=== PATIENT | female | born 1945 | race Caucasian/White ===

== ENCOUNTER 2018-06-26 12:58 | Inpatient (IN) ==
[2018-06-26] MEDS ORDERED: Ondansetron 4 MG/2 ML VIAL IVP ONE (13:09)
[2018-06-26] MEDS ORDERED: *HR* FentaNYL (PF) 100 MCG/2 ML VIAL IVP ONE (13:11)
--- NOTE | 2018-06-26 13:14 | Emergency Department Note ---
Disposition Clinical Impression: Renal mass, Hematoma Disposition: Admitted As Inpatient Condition: Good Time of Disposition: 15:40 Abdominal Pain HPI - General Chief Complaint: ED Abdominal Pain Stated Complaint: right side pain Time Seen by Provider: 06/26/18 13:09 Source: patient, EMS Mode of arrival: EMS Limitations: no limitations Nursing Notes Reviewed: Yes Vital Signs Reviewed: Yes - History of Present Illness HPI Narrative: The patient presents emergency department complaining of right flank pain. Does have a history of renal mass as well as left-sided breast cancer. Currently in remission. States that the mass is been ultrasounded several times to ensure no growth. Most recent size was 6 cm. Does report she also has history of stage III chronic kidney disease. Is not on dialysis. Patient reports today she was sitting watching television whenever she started having a right-sided pain. She had some nausea but no true vomiting. Denies any diarrhea did have prominent yesterday. She denies any blood or dark stools. She denies any shortness breath or chest pain. States that she was rehabilitated by the pain so much she had to crawl to the house. She reports the pain is still present however eased up somewhat. She has not tried anything to make it better. Patient does have history of cholecystectomy and hysterectomy. - Related Data Home Medications Medication Instructions Recorded Confirmed Atenolol [Tenormin] 50 mg PO DAILY 09/30/15 09/30/15 Cholecalciferol (D-3) [Vitamin D] 5,000 unit PO DAILY 09/30/15 09/30/15 Furosemide [Lasix] 40 mg PO DAILY 09/30/15 09/30/15 Spironolactone [Aldactone] 50 mg PO DAILY 09/30/15 09/30/15 Allergies Allergy/AdvReac Type Severity Reaction Status Date / Time Penicillins Allergy Numbness Verified 09/30/15 10:54 All systems ED: reviewed and negative except as stated. Review of Systems: As Per HPI Constitutional: Denies: fever, chills ENT ED: Denies: congestion Cardiovascular: Denies: chest pain, palpitations, syncope Respiratory: Denies: cough, dyspnea Gastrointestinal: Reports: abdominal pain, nausea. Denies: vomiting, diarrhea, constipation, hematemesis, melena, hematochezia Genitourinary: Denies: urgency, dysuria, frequency, hematuria Integumentary: Denies: rash Neurological: Denies: headache, weakness Abdominal Pain PMH - Past Medical History Medical history: Reports: arthritis, cancer, hypertension, renal disease Female Surgical History: Reports: no surgical history Psychiatric history: Reports: no psych history - Social History Smoking status: Never smoker Alcohol use: Reports: none Drug use: Reports: none Physical Exam - General Limitations: no limitations General appearance: alert, in no apparent distress - Head Head exam: atraumatic, normocephalic, normal inspection - Eye Eye exam: Present: normal appearance, PERRL, EOMI - ENT ENT exam: normal exam, normal oropharynx, mucous membranes moist - Neck Neck exam: Present: normal inspection, full ROM, trachea midline - Chest Chest inspection: Present: normal inspection, symmetric chest wall rise. Absent: tenderness - Respiratory Respiratory exam: Present: normal lung sounds bilaterally. Absent: respiratory distress, accessory muscle use - Cardiovascular Cardiovascular exam: Present: regular rate, normal rhythm, normal heart sounds - Abdominal Exam Abdominal exam: Present: soft, tenderness (The right upper and right lower quadrant) - Extremities Exam Extremities exam: Present: normal inspection, full ROM, normal capillary refill. Absent: tenderness, pedal edema, calf tenderness - Back Exam Back exam: Present: normal inspection, full ROM, CVA tenderness (R) - Neurological Exam Neurological exam: Present: alert, oriented X3 - Psychiatric Psychiatric exam: Present: normal affect, normal mood - Skin Skin exam: Present: warm, dry, intact, normal color. Absent: rash, cyanosis, diaphoresis Course Course Narrative: Female patient with a history of left-sided breast cancer as well as a known right renal mass presenting with sudden onset right flank pain. Abdomen is soft and non-peritoneal. She did have an episode of nausea but no true vomiting. No diarrhea. Did have a bowel movement yesterday. Patient complains of pain. No urinary symptoms. We will provide her with pain medication as well as nausea medication get a CT of her abdomen. Does have a history of CAD so we will not use IV contrast at this time. We will also get basic lab workup on patient. - Reevaluation(s) Reevaluation #1: Concerns for new hematoma formation near the right renal mass. We will contact urology to discuss the patient. Time: 13:40 Reevaluation #2: We will admit patient to the hospital at this time for serial H&H's. Patient appears clinically stable. Patient is been managed with fentanyl. We will admit to the hospital. Time: 15:39 - Consultations Consultation #1: I spoke wih Dr Simmons. He was familiar with the Pt. his recommendation was for admission and serial hemoglobins. Is requesting patient be admitted to the hospitalist. The concern would be if her hemoglobin did drop that she would need to be evaluated by IR and have a possible embolization. Time: 13:46 Consultation #2: Dr. Rosales accepted patient in stable condition. Time: 15:39 Vital Signs Temperature 97.9 F 06/26/18 13:08 Pulse Rate 66 06/26/18 13:08 Respiratory Rate 18 06/26/18 13:08 Blood Pressure 152/88 06/26/18 13:08 O2 Sat by Pulse Oximetry 98 06/26/18 13:08 Temperature 97.9 F 06/26/18 13:08 Pulse Rate 67 06/26/18 13:08 Respiratory Rate 18 06/26/18 13:08 Blood Pressure 152/88 06/26/18 13:08 O2 Sat by Pulse Oximetry 98 06/26/18 13:08 Oxygen Delivery Oxygen Delivery Room Air Abdominal Pain - Medical Records Medical records reviewed: Yes I reviewed the patient's medical records. - Lab Data Lab results reviewed: Yes I reviewed the patient's lab results. Result diagrams: 06/26/18 13:52 06/26/18 13:52 Lab Results 06/26/18 06/26/18 06/26/18 Range/Units 13:52 13:52 13:52 WBC 13.8 H (4.3-11.1) K/mcL RBC 4.50 (3.82-4.97) M/mcL Hgb 13.8 (11.5-15.4) g/dL Hct 42.6 (35.3-44.9) % MCV 94.7 (83.0-100.0) fL MCH 30.7 (28.0-33.3) pg MCHC 32.4 (31.6-35.5) g/dL RDW 13.5 (11.5-14.5) % Plt Count 232 (140-400) K/mcL MPV 10.2 (9.4-12.4) fL Immature Gran % 1.0 (0-4) % Seg Neutrophils % 82.7 % Lymphocytes % 11.0 % Monocytes % 4.4 % Eosinophils % 0.5 % Basophils % 0.4 % Neutrophils # 11.4 H (1.6-8.9) K/mcL Lymphocytes # 1.5 (0.6-4.6) K/mcL Monocytes # 0.6 (0.0-1.3) K/mcL Eosinophils # 0.1 (0.0-0.6) K/mcL Basophils # 0.1 (0.0-0.2) K/mcL Sodium 139 (136-145) mEq/L Potassium 4.6 (3.5-5.1) mEq/L Chloride 104 (98-107) mEq/L Carbon Dioxide 25 (23-29) mEq/L BUN 37 H (8-23) mg/dL Creatinine 1.52 H (0.60-1.20) mg/dL Est GFR ( Amer) 41 L (> 60) Est GFR (Non-Af Amer) 33 L (> 60) BUN/Creatinine Ratio 24 (6-26) Glucose 165 H (70-105) mg/dL Calculated Osmolality 300 (280-300) Lactic Acid 1.6 (0.5-2.2) mmol/L Calcium 9.5 (8.6-10.3) mg/dL Total Bilirubin 0.7 (0.3-1.0) mg/dL Direct Bilirubin 0.1 (0.0-0.2) mg/dL Indirect Bilirubin 0.6 (0.0-1.2) mg/dL AST 15 (13-39) Units/L ALT 17 (7-52) Units/L Alkaline Phosphatase 75 (34-104) Units/L Troponin I < 0.03 (< 0.04) ng/mL Serum Total Protein 7.2 (6.4-8.9) g/dL Albumin 4.3 (3.5-5.7) g/dL Globulin 2.9 (2.4-3.5) g/dL Albumin/Globulin Ratio 1.5 (1.1-2.2) Lipase 64 (11-82) Units/L Urine Color (Yellow) Urine Clarity (Clear) Urine pH (5.0-8.0) pH Units Ur Specific [place] (1.010-1.025) Urine Protein (Neg-Trace) mg/dL Urine Glucose (UA) (Normal) mg/dL Urine Ketones (Negative) mg/dL Urine Blood (Negative) Urine Nitrite (Negative) Urine Bilirubin (Negative) Urine Urobilinogen (Normal) mg/dL Ur Leukocyte Esterase (Negative) Urine Microscopic RBC (0-3) per hpf Urine Microscopic WBC (0-3) per hpf Ur Squamous Epith Cells (None-Few) per lpf Urine Bacteria (None-Few) per hpf Hyaline Casts (None-Few) per lpf Ur Culture Indicated? (NO) 06/26/18 Range/Units 14:16 WBC (4.3-11.1) K/mcL RBC (3.82-4.97) M/mcL Hgb (11.5-15.4) g/dL Hct (35.3-44.9) % MCV (83.0-100.0) fL MCH (28.0-33.3) pg MCHC (31.6-35.5) g/dL RDW (11.5-14.5) % Plt Count (140-400) K/mcL MPV (9.4-12.4) fL Immature Gran % (0-4) % Seg Neutrophils % % Lymphocytes % % Monocytes % % Eosinophils % % Basophils % % Neutrophils # (1.6-8.9) K/mcL Lymphocytes # (0.6-4.6) K/mcL Monocytes # (0.0-1.3) K/mcL Eosinophils # (0.0-0.6) K/mcL Basophils # (0.0-0.2) K/mcL Sodium (136-145) mEq/L Potassium (3.5-5.1) mEq/L Chloride (98-107) mEq/L Carbon Dioxide (23-29) mEq/L BUN (8-23) mg/dL Creatinine (0.60-1.20) mg/dL Est GFR ( Amer) (> 60) Est GFR (Non-Af Amer) (> 60) BUN/Creatinine Ratio (6-26) Glucose (70-105) mg/dL Calculated Osmolality (280-300) Lactic Acid (0.5-2.2) mmol/L Calcium (8.6-10.3) mg/dL Total Bilirubin (0.3-1.0) mg/dL Direct Bilirubin (0.0-0.2) mg/dL Indirect Bilirubin (0.0-1.2) mg/dL AST (13-39) Units/L ALT (7-52) Units/L Alkaline Phosphatase (34-104) Units/L Troponin I (< 0.04) ng/mL Serum Total Protein (6.4-8.9) g/dL Albumin (3.5-5.7) g/dL Globulin (2.4-3.5) g/dL Albumin/Globulin Ratio (1.1-2.2) Lipase (11-82) Units/L Urine Color Yellow (Yellow) Urine Clarity Clear (Clear) Urine pH 6.0 (5.0-8.0) pH Units Ur Specific [place] 1.013 (1.010-1.025) Urine Protein Negative (Neg-Trace) mg/dL Urine Glucose (UA) Normal (Normal) mg/dL Urine Ketones Negative (Negative) mg/dL Urine Blood Small H (Negative) Urine Nitrite Negative (Negative) Urine Bilirubin Negative (Negative) Urine Urobilinogen Normal (Normal) mg/dL Ur Leukocyte Esterase Negative (Negative) Urine Microscopic RBC 0-3 (0-3) per hpf Urine Microscopic WBC 0-3 (0-3) per hpf Ur Squamous Epith Cells Many H (None-Few) per lpf Urine Bacteria None Seen (None-Few) per hpf Hyaline Casts None Seen (None-Few) per lpf Ur Culture Indicated? NO (NO) - Radiology Data Radiology results reviewed: Yes I reviewed the patient's radiology results. Abdomen/Pelvis CT 06/26/18 13:10 IMPRESSION: 1. Interval hemorrhage of right renal angiomyolipoma and interval increase size of right renal angiomyolipoma. Relatively small sized right retroperitoneal hematoma. 2. Diverticulosis coli without CT evidence of acute diverticulitis. 3. Calcific atherosclerotic disease aorta. D/ / Mono Rodriguez / Mono Rodriguez Interpreting Provider: Mono Rodriguez - EKG Data EKG attestation: Yes I reviewed and interpreted this EKG. EKG results narrative: Normal sinus rhythm at a rate of 66. LA interval is not measured. QRS duration is 90. QT is 394. QTC is 413. No signs of acute ischemia. Delayed R-wave progression. No signs of WPW or [place]. No significant change from previous EKG dated 12/18/2012. Attestation Statement - Attestation Attestation: I, Duarte Wayne, examined this patient and my medical decision-making was reviewed with the [employer]/PA/Advanced Practice Nurse/Resident Physician. I agree with the documented findings, disposition and treatment plan as described except to the extent set forth below. 72-year-old female presents emergency Department with concerns of right flank pain. Patient states symptoms are worsening over the past 24-48 hours. Patient has a history of a renal lipoma which she has attempted to have embolized in the past however those previous attempts were unsuccessful. Pt has continued pain in the ED. Denies worsening of pain with food. CT shows likely hematoma of the right renal capsule with surrounding stranding. We spoke with the urologist who recommended patient be admitted to the hospital for embolization with interventional radiology. Patient is comfortable with this plan of action.
[2018-06-26 14:15] LABS: Basophils # 0.1 K/mcL (0.0-0.2); Basophils % 0.4 %; Eosinophils # 0.1 K/mcL (0.0-0.6); Eosinophils % 0.5 %; Hematocrit 42.6 % (35.3-44.9); Hemoglobin 13.8 g/dL (11.5-15.4); Lymphocytes # 1.5 K/mcL (0.6-4.6); Mean Corpuscular HGB Conc 32.4 g/dL (31.6-35.5); Mean Corpuscular Hemoglobin 30.7 pg (28.0-33.3); Mean Corpuscular Volume 94.7 fL (83.0-100.0); Mean Platelet Volume 10.2 fL (9.4-12.4); Monocytes # 0.6 K/mcL (0.0-1.3); Monocytes % 4.4 %; Neutrophils # 11.4 K/mcL (1.6-8.9); Platelet Count 232 K/mcL (140-400); Red Cell Distribution Width 13.5 % (11.5-14.5); Segmented Neutrophils % 82.7 %
[2018-06-26 14:30] LABS: Alanine Aminotransferase 17 Units/L (7-52); Albumin 4.3 g/dL (3.5-5.7); Albumin/Globulin Ratio 1.5 (1.1-2.2); Alkaline Phosphatase 75 Units/L (34-104); Aspartate Amino Transferase 15 Units/L (13-39); BUN/Creatinine Ratio 24 (6-26); Bilirubin,Direct 0.1 mg/dL (0.0-0.2); Bilirubin,Indirect 0.6 mg/dL (0.0-1.2); Bilirubin,Total 0.7 mg/dL (0.3-1.0); Blood Urea Nitrogen 37 mg/dL (8-23); Calcium 9.5 mg/dL (8.6-10.3); Carbon Dioxide 25 mEq/L (23-29); Chloride 104 mEq/L (98-107); Globulin 2.9 g/dL (2.4-3.5); Glucose 165 mg/dL (70-105); Lipase 64 Units/L (11-82); Osmolality,Calculated 300 (280-300); Potassium 4.6 mEq/L (3.5-5.1); Sodium 139 mEq/L (136-145); Total Protein 7.2 g/dL (6.4-8.9); Troponin I < 0.03 ng/mL (< 0.04); eGFR For Non-African Americans 33 (> 60)
[2018-06-26 14:52] LABS: Bilirubin,Urine Negative (Negative); Blood,Urine Small (Negative); Clarity,Urine Clear (Clear); Color,Urine Yellow (Yellow); Glucose,Urine (UA) Normal (Normal); Ketones,Urine Negative (Negative); Leukocyte Esterase,Urine Negative (Negative); Nitrite,Urine Negative (Negative); Protein,Urine Negative (Neg-Trace); Specific Gravity,Urine 1.013 (1.010-1.025); Urobilinogen,Urine Normal (Normal)
[2018-06-26 14:58] LABS: Bacteria,Urine None Seen per hpf (None-Few); Hyaline Casts,Urine None Seen per lpf (None-Few); RBC,Urine 0-3 per hpf (0-3); Squamous Epithelial Cell,Urine Many per lpf (None-Few); WBC,Urine 0-3 per hpf (0-3)
[2018-06-26] MEDS ORDERED: Naloxone 0.4 MG/ML INJ IVP PRN (16:16)
--- NOTE | 2018-06-26 16:16 | Urology - Consult Note ---
Date of Encounter: 06/26/18 Time of Encounter: 16:12 - Assessment and Plan (1) Angiomyolipoma of right kidney Current Visit: Yes Status: Acute Assessment and plan: Patient has right AML which appears to be spontaneously bleeding. At this point the patient's hemoglobin and vital signs are stable. Recommend for patient to come into the hospital for observation for serial hemoglobins. Will reevaluate the patient tomorrow morning. If patient's vital signs were worsen or patient's hemoglobin precipitously we will need to get interventional radiology to evaluate the patient for possible re-embolization. We will continue to follow along very closely with this patient. (2) Renal hematoma, right Current Visit: Yes Status: Acute Assessment and plan: Hematoma relatively small this time. We will have to reevaluate if patient's vital signs or hemoglobin change significantly. Qualifiers: Encounter type: initial encounter Qualified Code(s): S37.011A - Minor contusion of right kidney, initial encounter (3) Chronic kidney disease Current Visit: Yes Status: Acute Assessment and plan: Patient serum creatinine stable 1.5. This is close to her baseline. Encourage as much fluid as possible. We will continue with conservative management regarding her bleeding right angiomyolipoma as I am concerned of any operative intervention would likely require a right nephrectomy. Qualifiers: Chronic kidney disease stage: stage 3 (moderate) Qualified Code(s): N18.3 - Chronic kidney disease, stage 3 (moderate) (4) Nausea and vomiting Current Visit: Yes Status: Acute Assessment and plan: Patient to continue with IV nausea medication at this time. Likely will improve slowly with fluid management. Qualifiers: Vomiting type: unspecified Qualified Code(s): R11.2 - Nausea with vomiting, unspecified Urology CN:HPI Consult date: 06/26/18 Reason for consult Urology: Other (bleeding AML) Requesting physician: Denisa Keith History of present illness: Anna is a 72-year-old female well-known to me secondary to right angiomyolipoma. Patient was first diagnosed with this in 2013 and subsequently had embolization performed by interventional radiology. Patient had been followed with serial CT scans which were later switched to ultrasound which showed stability in the size of her right renal AML. Patient states that earlier today she had sudden onset of severe right-sided flank pain. She has developed some severe nausea and vomiting. She came to the emergency department where CT scan was performed which showed blood around her right AML consistent with a bleeding angiomyolipoma. Patient's pain is currently okay controlled with her right flank pain described as a 5 out of 10 pressure in nature with no obvious radiation. Past Med Surg Social Fam HX - Past Medical History Medical history: arthritis, cancer, hypertension, renal disease Additional medical history: anemia - lumpectomy - colonoscopy Psychiatric history: no psych history - Past Surgical History Surgical History: cholecystectomy, hysterectomy, orthopedic, other - Social History Smoking Status: Never smoker Smokeless Tobacco Status: No Alcohol use: none Drug use: none - Family History Mother History Unknown: Yes (Patient denies any significant family history regarding kidney cancer or masses.) Medications and Allergies Atenolol [Tenormin] 50 mg PO DAILY 09/30/15 [History] Cholecalciferol (D-3) [Vitamin D] 5,000 unit PO DAILY 09/30/15 [History] Furosemide [Lasix] 40 mg PO DAILY 09/30/15 [History] Spironolactone [Aldactone] 50 mg PO DAILY 09/30/15 [History] Allergy/AdvReac Type Severity Reaction Status Date / Time Penicillins Allergy Numbness Verified 09/30/15 10:54 Review of Systems - Constitutional no chills, no fever(s) - EENT Nose, mouth and throat: no dizziness, no sore throat - Cardiovascular no chest pain, no dyspnea - Respiratory no cough, no dyspnea - Gastrointestinal abdominal pain, nausea, vomiting - Genitourinary Genitourinary: no hematuria - Musculoskeletal back pain, no muscle weakness - Integumentary no swelling - Neurological no confusion - Psychiatric no anxiety, no confusion - Hematologic/Lymphatic no easy bleeding, no easy bruising, no lymphadenopathy - Allergic/Immunologic no throat swelling, no wheezing Exam Initial Vital Signs Temp Pulse Resp BP Pulse Ox 97.9 F 66 18 152/88 98 06/26/18 13:08 06/26/18 13:08 06/26/18 13:08 06/26/18 13:08 06/26/18 13:08 General/Neuological: alert and oriented x 3 Eyes: normal pupils, non-icteric Neck: no lymphadenopathy noted, supple to touch Cardiovascular: RRR, no murmurs Respiratory: normal respiratory effort, clear bilaterally ABD: soft, nontender, no masses palpated, good bowel sounds Back: Spine straight, some right-sided flank pain on percussion Skin: no rashes noted Musculoskeletal: normal gait, FROMx4 Urology Results - Labs 06/26/18 13:52 06/26/18 13:52 Abnormal lab results WBC 13.8 K/mcL (4.3-11.1) H 06/26/18 13:52 Neutrophils # 11.4 K/mcL (1.6-8.9) H 06/26/18 13:52 BUN 37 mg/dL (8-23) H 06/26/18 13:52 Creatinine 1.52 mg/dL (0.60-1.20) H 06/26/18 13:52 Est GFR ( Amer) 41 (> 60) L 06/26/18 13:52 Est GFR (Non-Af Amer) 33 (> 60) L 06/26/18 13:52 Glucose 165 mg/dL (70-105) H 06/26/18 13:52 Urine Blood Small (Negative) H 06/26/18 14:16 Ur Squamous Epith Cells Many per lpf (None-Few) H 06/26/18 14:16 Diabetes panel 06/26/18 Range/Units 13:52 Sodium 139 (136-145) mEq/L Potassium 4.6 (3.5-5.1) mEq/L Chloride 104 (98-107) mEq/L Carbon Dioxide 25 (23-29) mEq/L BUN 37 H (8-23) mg/dL Creatinine 1.52 H (0.60-1.20) mg/dL Glucose 165 H (70-105) mg/dL Calcium 9.5 (8.6-10.3) mg/dL AST 15 (13-39) Units/L ALT 17 (7-52) Units/L Alkaline Phosphatase 75 (34-104) Units/L Albumin 4.3 (3.5-5.7) g/dL Calcium panel 06/26/18 Range/Units 13:52 Calcium 9.5 (8.6-10.3) mg/dL Albumin 4.3 (3.5-5.7) g/dL Pituitary panel 06/26/18 Range/Units 13:52 Sodium 139 (136-145) mEq/L Potassium 4.6 (3.5-5.1) mEq/L Chloride 104 (98-107) mEq/L Carbon Dioxide 25 (23-29) mEq/L BUN 37 H (8-23) mg/dL Creatinine 1.52 H (0.60-1.20) mg/dL Glucose 165 H (70-105) mg/dL Calcium 9.5 (8.6-10.3) mg/dL Adrenal panel 06/26/18 Range/Units 13:52 Sodium 139 (136-145) mEq/L Potassium 4.6 (3.5-5.1) mEq/L Chloride 104 (98-107) mEq/L Carbon Dioxide 25 (23-29) mEq/L BUN 37 H (8-23) mg/dL Creatinine 1.52 H (0.60-1.20) mg/dL Glucose 165 H (70-105) mg/dL Calcium 9.5 (8.6-10.3) mg/dL Total Bilirubin 0.7 (0.3-1.0) mg/dL AST 15 (13-39) Units/L ALT 17 (7-52) Units/L Alkaline Phosphatase 75 (34-104) Units/L Albumin 4.3 (3.5-5.7) g/dL All other labs normal. - Imaging CT scan - abdomen: image reviewed CT scan - pelvis: image reviewed Consult Discharge Plan - Plan Referrals: Anthony Elmore DO [Primary Care Provider] -
[2018-06-26] MEDS ORDERED: Ondansetron 4 MG/2 ML VIAL IVP PRN (16:19)
[2018-06-26] MEDS ORDERED: *HR* OxyCODONE/APAP 5/325 TABLET PO PRN (16:20)
[2018-06-26] MEDS ORDERED: Acetaminophen 325 MG TABLET PO PRN (16:20)
--- NOTE | 2018-06-26 17:58 | Internal Med History&Physical ---
Date of Encounter: 06/26/18 Time of Encounter: 17:00 Internal Medicine - H&P: HPI Chief complaint: Right flank pain of 1 day duration History of present illness: Ms. 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 Pain was sharp and sudden onset and radiating around the back. She says pain was associated with nausea and vomiting. Pain started around 11am today. She denies any other acute complaints She came to the ER and had a CT scan done showing a right renal angiomyolipoma and interval increase size of right renal angiomyolipoma. Relatively small sized right retroperitoneal hematoma. She was seen by urology in the ER and she is being admitted for further management Past Med Surg Social Fam HX - Past Medical History Medical history: arthritis, cancer, hypertension, renal disease Additional medical history: anemia - lumpectomy - colonoscopy Psychiatric history: no psych history - Past Surgical History Surgical History: cholecystectomy, hysterectomy, orthopedic, other - Social History Smoking Status: Former smoker Smokeless Tobacco Status: No Alcohol use: none Drug use: none - Family History Mother History Unknown: Yes Hx Family Cardiac Disorders: Yes Hx Family Endocrine Disorder: Yes Father Hx Family Cardiac Disorders: Yes Brother Hx Family Cardiac Disorders: Yes Hx Family Endocrine Disorder: Yes Internal Medicine - H&P: Meds Atenolol [Tenormin] 50 mg PO DAILY 09/30/15 [History] Cholecalciferol (D-3) [Vitamin D] 5,000 unit PO DAILY 09/30/15 [History] Furosemide [Lasix] 40 mg PO DAILY 09/30/15 [History] Spironolactone [Aldactone] 50 mg PO DAILY 09/30/15 [History] Allergy/AdvReac Type Severity Reaction Status Date / Time Penicillins Allergy Numbness Verified 09/30/15 10:54 All Systems PM: A 10-system review of systems was performed and is negative for pertinent fin dings except as documented above in the HPI. - Constitutional Constitutional: no chills, no fever(s), no night sweats - EENT Eyes: no change in vision, no discharge, no pain, no photophobia Ears: no ear discharge, no ear pain, no tinnitus Nose, mouth and throat: no dysphagia, no nasal discharge, no neck pain, no sore throat - Cardiovascular Cardiovascular ROS IM: no chest pain, no diaphoresis, no dyspnea, no lightheadedness, no palpitations, no syncope - Respiratory Respiratory: no cough, no dyspnea, no wheezing, no excessive phlegm production - Gastrointestinal Gastrointestinal: no abdominal pain, no diarrhea, no hematemesis, no hematochezia, no melena, no nausea, no vomiting - Genitourinary Genitourinary: flank pain, no change in urinary stream, no dysuria, no hematuria - Musculoskeletal Musculoskeletal ROS IM: no numbness, no tingling - Integumentary Integumentary IM: no rash, no unusual bruising - Neurological Neurological ROS: no confusion, no convulsions, no focal weakness, no numbness, no tingling, no tremor(s) - Hematologic/Lymphatic Hematologic/Lymphatic: no easy bruising - Constitutional Vitals: Temp Pulse Resp BP Pulse Ox 97.9 F 67 18 152/88 98 06/26/18 13:08 06/26/18 13:08 06/26/18 13:08 06/26/18 13:08 06/26/18 13:08 General appearance: Present: A&O X 3 Exam: NAD - Head Head exam: Present: atraumatic, normocephalic - Eye Eye exam: Present: PERRL, conjuntiva pink, sclera anicteric Pupils: Present: PERRL - Neck Neck exam general surgery: Present: supple, trachea midline. Absent: lymphadenopathy - Respiratory Respiratory exam: Present: CTAB. Absent: accessory muscle use, rales, rhonchi, wheezes - Cardiovascular Cardiovascular exam: Present: RRR, +S1, +S2. Absent: diastolic murmur, gallop, rubs, systolic murmur - GI/Abdominal GI/Abdominal exam: Present: normal bowel sounds, soft, no peritoneal signs. Absent: distended, tenderness - Additional comments: right flank pain - Extremities Exam Extremities exam: Present: warm, radial pulses palpable and symmetrical. Absent: calf tenderness, cyanotic, pedal edema - Neurological Exam Neurological exam: Present: CN II-XII intact, oriented X3, no focal deficits. Absent: pronater drift, facial droop, speech deficit - Skin Skin exam: Present: dry, intact Internal Med - H&P Results - Labs CBC & Chem 7: 06/26/18 13:52 06/26/18 13:52 Labs: Short CBC 06/26/18 Range/Units 13:52 WBC 13.8 H (4.3-11.1) K/mcL Hgb 13.8 (11.5-15.4) g/dL Hct 42.6 (35.3-44.9) % Plt Count 232 (140-400) K/mcL Neutrophils # 11.4 H (1.6-8.9) K/mcL BMP 06/26/18 13:52 Sodium 139 Potassium 4.6 Chloride 104 Carbon Dioxide 25 BUN 37 H Creatinine 1.52 H Glucose 165 H Calcium 9.5 Cardiac Enzymes 06/26/18 Range/Units 13:52 Troponin I < 0.03 (< 0.04) ng/mL Liver Function 06/26/18 Range/Units 13:52 Total Bilirubin 0.7 (0.3-1.0) mg/dL Direct Bilirubin 0.1 (0.0-0.2) mg/dL AST 15 (13-39) Units/L ALT 17 (7-52) Units/L Alkaline Phosphatase 75 (34-104) Units/L Albumin 4.3 (3.5-5.7) g/dL Urine 06/26/18 Range/Units 14:16 Urine Color Yellow (Yellow) Urine Clarity Clear (Clear) Urine pH 6.0 (5.0-8.0) pH Units Ur Specific [place] 1.013 (1.010-1.025) Urine Protein Negative (Neg-Trace) mg/dL Urine Glucose (UA) Normal (Normal) mg/dL - Impressions ITS Impressions Abdomen/Pelvis CT 06/26/18 13:10 IMPRESSION: 1. Interval hemorrhage of right renal angiomyolipoma and interval increase size of right renal angiomyolipoma. Relatively small sized right retroperitoneal hematoma. 2. Diverticulosis coli without CT evidence of acute diverticulitis. 3. Calcific atherosclerotic disease aorta. D/ / Mono Rodriguez / Mono Rodriguez Interpreting Provider: Mono Rodriguez - Assessment and Plan (1) Renal hematoma, right Current Visit: Yes Status: Acute Assessment and plan: Flank pain secondary to hemorrhage of renal angimyolipoma Serial hemoglobins. Urology following. Possible IR embolization if bleeding persists/ hemglobin falls Qualifiers: Encounter type: initial encounter Qualified Code(s): S37.011A - Minor contusion of right kidney, initial encounter (2) Angiomyolipoma of right kidney Current Visit: Yes Status: Acute Assessment and plan: See #1. Monitor CBC (3) Chronic kidney disease Current Visit: Yes Status: Acute Assessment and plan: VLADISLAV on CKD 3. IV fluids. Monitor creatinine Qualifiers: Chronic kidney disease stage: stage 3 (moderate) Qualified Code(s): N18.3 - Chronic kidney disease, stage 3 (moderate) (4) Nausea and vomiting Current Visit: Yes Status: Acute Assessment and plan: Zofran PRN Qualifiers: Vomiting type: unspecified Qualified Code(s): R11.2 - Nausea with vomiting, unspecified (5) DVT prophylaxis Current Visit: Yes Status: Acute Assessment and plan: SCDs - Time Spent With Patient Total time spent is greater than 50% in coordination of care (as documented) at patient's floor/unit and/or counseling patient:
[2018-06-26] MEDS: 0.9 % Sodium Chloride 1,000 ML IVC SCH (21:34)
[2018-06-26 21:39] LABS: Hematocrit 38.6 % (35.3-44.9); Hemoglobin 12.5 g/dL (11.5-15.4)
[2018-06-27 05:30] LABS: Basophils % 0.2 %; Eosinophils # 0.1 K/mcL (0.0-0.6); Eosinophils % 0.4 %; Hematocrit 35.6 % (35.3-44.9); Hemoglobin 11.5 g/dL (11.5-15.4); Lymphocytes # 2.2 K/mcL (0.6-4.6); Lymphocytes % 16.2 %; Mean Corpuscular HGB Conc 32.3 g/dL (31.6-35.5); Mean Corpuscular Hemoglobin 30.6 pg (28.0-33.3); Mean Corpuscular Volume 94.7 fL (83.0-100.0); Mean Platelet Volume 10.4 fL (9.4-12.4); Monocytes # 0.9 K/mcL (0.0-1.3); Monocytes % 6.3 %; Neutrophils # 10.3 K/mcL (1.6-8.9); Platelet Count 202 K/mcL (140-400); Red Blood Count 3.76 M/mcL (3.82-4.97); Red Cell Distribution Width 13.6 % (11.5-14.5); Segmented Neutrophils % 75.9 %
[2018-06-27 05:51] LABS: Calcium 8.7 mg/dL (8.6-10.3); Magnesium 2.1 mg/dL (1.6-2.6); Phosphorous 4.3 mg/dL (2.7-4.5); Potassium 4.1 mEq/L (3.5-5.1)
--- NOTE | 2018-06-27 07:23 | Electrocardiograph Report ---
[facility] [place] Test Date: 2018-06-26 Pat Name: Anna Cottrell Department: [id number] Room: 2A33 Gender: F Corporate Administrative Assistant: : 1945 Requested By: Denisa Keith Order Number: [id number] Reading MD: Anthony Elmore Measurements Intervals [place] Rate: 66 P: CT: QRS: 11 QRSD: 90 T: 7 QT: 394 QTc: 413 Interpretive Statements Normal sinus rhythm Abnormal R-wave progression, early transition Borderline T wave abnormalities Electronically Signed On 06-27-2018 7:22:27 EDT by Anthony Elmore
[2018-06-27] MEDS ORDERED: *HR* OxyCODONE/APAP 5/325 TABLET PO PRN (07:35)
--- NOTE | 2018-06-27 08:24 | Urology Progress Note ---
<Rahel Flores N - Last Filed: 06/27/18 08:21> Date of Encounter: 06/27/18 Time of Encounter: 07:45 - Assessment and Plan (1) Angiomyolipoma of right kidney Current Visit: Yes Status: Acute Assessment and plan: Patient is a 72-year-old female who presents with angiomyolipoma of the right kidney. Patient has undergone embolization in the past. Patient exhibits no clinical sign of active bleeding. Vital signs are currently stable and afebrile. Hemoglobin has been stable. We will continue with serial H&H and plan to monitor conservatively. (2) Renal hematoma, right Current Visit: Yes Status: Acute Qualifiers: Encounter type: initial encounter Qualified Code(s): S37.011A - Minor contusion of right kidney, initial encounter Progress Note Subjective: no new complaints, feels better Narrative: Patient seen and examined sitting upright in bed in no apparent distress. Patient states pain is much improved and well-controlled. Patient reports she is voiding without difficulty. Patient denies any nausea, vomiting, flank pain, abdominal pain, palpitations, dyspnea, fever or chills. Objective Initial Vital Signs Temp Pulse Resp BP Pulse Ox 97.9 F 66 18 152/88 98 06/26/18 13:08 06/26/18 13:08 06/26/18 13:08 06/26/18 13:08 06/26/18 13:08 - General physical appearance Present: well developed, no distress, no pain - Respiratory Present: normal expansion, normal respiratory effort - Abdomen Present: soft, non tender. Absent: distended - Integumentary Present: no rash, no abnormal pigmentation - Musculoskeletal Present: normal posture - Psychiatric Present: oriented to time, oriented to person, oriented to place, speech is normal, memory intact - Labs 06/27/18 05:14 06/27/18 05:14 Diabetes panel 06/26/18 06/27/18 Range/Units 13:52 05:14 Sodium 139 137 (136-145) mEq/L Potassium 4.6 4.1 (3.5-5.1) mEq/L Chloride 104 106 (98-107) mEq/L Carbon Dioxide 25 21 L (23-29) mEq/L BUN 37 H 42 H (8-23) mg/dL Creatinine 1.52 H 1.56 H (0.60-1.20) mg/dL Glucose 165 H 134 H (70-105) mg/dL Calcium 9.5 8.7 (8.6-10.3) mg/dL AST 15 (13-39) Units/L ALT 17 (7-52) Units/L Alkaline Phosphatase 75 (34-104) Units/L Albumin 4.3 (3.5-5.7) g/dL Calcium panel 06/26/18 06/27/18 Range/Units 13:52 05:14 Calcium 9.5 8.7 (8.6-10.3) mg/dL Phosphorus 4.3 (2.7-4.5) mg/dL Albumin 4.3 (3.5-5.7) g/dL Pituitary panel 06/26/18 06/27/18 Range/Units 13:52 05:14 Sodium 139 137 (136-145) mEq/L Potassium 4.6 4.1 (3.5-5.1) mEq/L Chloride 104 106 (98-107) mEq/L Carbon Dioxide 25 21 L (23-29) mEq/L BUN 37 H 42 H (8-23) mg/dL Creatinine 1.52 H 1.56 H (0.60-1.20) mg/dL Glucose 165 H 134 H (70-105) mg/dL Calcium 9.5 8.7 (8.6-10.3) mg/dL Adrenal panel 06/26/18 06/27/18 Range/Units 13:52 05:14 Sodium 139 137 (136-145) mEq/L Potassium 4.6 4.1 (3.5-5.1) mEq/L Chloride 104 106 (98-107) mEq/L Carbon Dioxide 25 21 L (23-29) mEq/L BUN 37 H 42 H (8-23) mg/dL Creatinine 1.52 H 1.56 H (0.60-1.20) mg/dL Glucose 165 H 134 H (70-105) mg/dL Calcium 9.5 8.7 (8.6-10.3) mg/dL Total Bilirubin 0.7 (0.3-1.0) mg/dL AST 15 (13-39) Units/L ALT 17 (7-52) Units/L Alkaline Phosphatase 75 (34-104) Units/L Albumin 4.3 (3.5-5.7) g/dL Consult Discharge Plan - Plan Referrals: Anthony Elmore DO [Primary Care Provider] - <Wilfred Simmons - Last Filed: 06/27/18 16:19> Date of Encounter: 06/27/18 - Assessment and Plan (1) Angiomyolipoma of right kidney Current Visit: Yes Status: Acute (2) Renal hematoma, right Current Visit: Yes Status: Acute Qualifiers: Encounter type: initial encounter Qualified Code(s): S37.011A - Minor contusion of right kidney, initial encounter (3) Chronic kidney disease Current Visit: Yes Status: Acute Qualifiers: Chronic kidney disease stage: stage 3 (moderate) Qualified Code(s): N18.3 - Chronic kidney disease, stage 3 (moderate) (4) Nausea and vomiting Current Visit: Yes Status: Acute Qualifiers: Vomiting type: unspecified Qualified Code(s): R11.2 - Nausea with vomiting, unspecified Progress Note Narrative: Patient was seen and examined independently. I gave her the plan as written by Rahel Flores. At this point we will plan on continued observation with serial hemoglobin. The patient in the lumen and vital signs remain stable tomorrow patient likely to be discharged home tomorrow. I did speak with interventional radiology and per his them we will plan on re-embolization in 2-3 weeks. Objective Initial Vital Signs Temp Pulse Resp BP Pulse Ox 97.9 F 66 18 152/88 98 06/26/18 13:08 06/26/18 13:08 06/26/18 13:08 06/26/18 13:08 06/26/18 13:08 - Labs 06/27/18 11:13 06/27/18 05:14 Diabetes panel 06/27/18 Range/Units 05:14 Sodium 137 (136-145) mEq/L Potassium 4.1 (3.5-5.1) mEq/L Chloride 106 (98-107) mEq/L Carbon Dioxide 21 L (23-29) mEq/L BUN 42 H (8-23) mg/dL Creatinine 1.56 H (0.60-1.20) mg/dL Glucose 134 H (70-105) mg/dL Calcium 8.7 (8.6-10.3) mg/dL Calcium panel 06/27/18 Range/Units 05:14 Calcium 8.7 (8.6-10.3) mg/dL Phosphorus 4.3 (2.7-4.5) mg/dL Pituitary panel 06/27/18 Range/Units 05:14 Sodium 137 (136-145) mEq/L Potassium 4.1 (3.5-5.1) mEq/L Chloride 106 (98-107) mEq/L Carbon Dioxide 21 L (23-29) mEq/L BUN 42 H (8-23) mg/dL Creatinine 1.56 H (0.60-1.20) mg/dL Glucose 134 H (70-105) mg/dL Calcium 8.7 (8.6-10.3) mg/dL Adrenal panel 06/27/18 Range/Units 05:14 Sodium 137 (136-145) mEq/L Potassium 4.1 (3.5-5.1) mEq/L Chloride 106 (98-107) mEq/L Carbon Dioxide 21 L (23-29) mEq/L BUN 42 H (8-23) mg/dL Creatinine 1.56 H (0.60-1.20) mg/dL Glucose 134 H (70-105) mg/dL Calcium 8.7 (8.6-10.3) mg/dL
--- NOTE | 2018-06-27 10:54 | Internal Med Progress Note ---
Hospitalist Progress Note - Encounter Date of Encounter: 06/27/18 Time of Encounter: 10:50 - Subjective Interval History: No acute events overnight. Seen by urology this am - Exam Vitals: Temp Pulse Resp BP Pulse Ox 97.9 F 63 18 118/77 95 06/27/18 10:50 06/27/18 10:50 06/27/18 10:50 06/27/18 10:50 06/27/18 10:50 Exam: General appearance: Present: A&O X 3, no acute distress Head exam: Present: normocephalic Respiratory exam: Present: CTAB. Absent: accessory muscle use, rales, rhonchi, wheezes Cardiovascular exam: Present: RRR, +S1, +S2. Absent: diastolic murmur, gallop, rubs, systolic murmur GI/Abdominal exam: Soft, NT, ND, +BS Extremities exam: Absent: pedal edema Neurological exam: Present: alert, oriented X3, no focal deficits. Absent: altered - Assessment and Plan (1) Renal hematoma, right Current Visit: Yes Status: Acute Assessment and Plan: Flank pain secondary to hemorrhage of renal angimyolipoma Serial hemoglobins. Urology following. Possible IR embolization if bleeding persists/ hemglobin falls Hemoglobin stable this am. Urology plan to monitor labs for one more day Likely discharge in am if no acute bleeding (2) Angiomyolipoma of right kidney Current Visit: Yes Status: Acute Assessment and Plan: See #1. Monitor CBC (3) Chronic kidney disease Current Visit: Yes Status: Acute Assessment and Plan: VLADISLAV on CKD 3. IV fluids. Monitor creatinine (4) Nausea and vomiting Current Visit: Yes Status: Acute Assessment and Plan: Zofran PRN (5) Hypertension Current Visit: Yes Status: Acute Assessment and Plan: Hypertension and reported hyperaldosteronism. Continue atenolol and spironolactone (6) DVT prophylaxis Current Visit: Yes Status: Acute Assessment and Plan: SCDs - Time Spent with Patient Total time spent is greater than 50% in coordination of care (as documented) at patient's floor/unit and/or counseling patient: Internal Medicine: Result - Labs CBC & Chem 7: 06/27/18 11:13 06/27/18 05:14 Labs: Short CBC 06/26/18 06/26/18 06/27/18 Range/Units 13:52 21:12 05:14 WBC 13.8 H 13.6 H (4.3-11.1) K/mcL Hgb 13.8 12.5 11.5 (11.5-15.4) g/dL Hct 42.6 38.6 35.6 (35.3-44.9) % Plt Count 232 202 (140-400) K/mcL Neutrophils # 11.4 H 10.3 H (1.6-8.9) K/mcL BMP 06/26/18 06/27/18 13:52 05:14 Sodium 139 137 Potassium 4.6 4.1 Chloride 104 106 Carbon Dioxide 25 21 L BUN 37 H 42 H Creatinine 1.52 H 1.56 H Glucose 165 H 134 H Calcium 9.5 8.7 Cardiac Enzymes 06/26/18 Range/Units 13:52 Troponin I < 0.03 (< 0.04) ng/mL Liver Function 06/26/18 Range/Units 13:52 Total Bilirubin 0.7 (0.3-1.0) mg/dL Direct Bilirubin 0.1 (0.0-0.2) mg/dL AST 15 (13-39) Units/L ALT 17 (7-52) Units/L Alkaline Phosphatase 75 (34-104) Units/L Albumin 4.3 (3.5-5.7) g/dL Urine 06/26/18 Range/Units 14:16 Urine Color Yellow (Yellow) Urine Clarity Clear (Clear) Urine pH 6.0 (5.0-8.0) pH Units Ur Specific [place] 1.013 (1.010-1.025) Urine Protein Negative (Neg-Trace) mg/dL Urine Glucose (UA) Normal (Normal) mg/dL - Impressions Impressions Abdomen/Pelvis CT 06/26/18 13:10 IMPRESSION: 1. Interval hemorrhage of right renal angiomyolipoma and interval increase size of right renal angiomyolipoma. Relatively small sized right retroperitoneal hematoma. 2. Diverticulosis coli without CT evidence of acute diverticulitis. 3. Calcific atherosclerotic disease aorta. D/ / Mono Rodriguez / Mono Rodriguez Interpreting Provider: Mono Rodriguez Consult Discharge Plan - Plan Referrals: Anthony Elmore DO [Primary Care Provider] - (1) Renal hematoma, right Qualifiers: Encounter type: initial encounter Qualified Code(s): S37.011A - Minor co ntusion of right kidney, initial encounter (3) Chronic kidney disease Qualifiers: Chronic kidney disease stage: stage 3 (moderate) Qualified Code(s): N18.3 - Chronic kidney disease, stage 3 (moderate) (4) Nausea and vomiting Qualifiers: Vomiting type: unspecified Qualified Code(s): R11.2 - Nausea with vomiting, unspecified
[2018-06-27] MEDS: 0.9 % Sodium Chloride 1,000 ML IVC SCH (11:22)
[2018-06-27 11:36] LABS: Hematocrit 34.8 % (35.3-44.9); Hemoglobin 11.5 g/dL (11.5-15.4)
[2018-06-27] MEDS: Cholecalciferol (D-3) 1,000 UNIT TABLET PO SCH (12:31)
[2018-06-27 17:18] LABS: Hematocrit 35.2 % (35.3-44.9); Hemoglobin 11.2 g/dL (11.5-15.4)
[2018-06-27] MEDS: Acetaminophen 325 MG TABLET PO PRN (20:32)
[2018-06-28] MEDS: 0.9 % Sodium Chloride 1,000 ML IVC SCH (04:20)
[2018-06-28] MEDS ORDERED: *HR* Alteplase (Cathflo) 2 MG VIAL IVP ONE (04:36)
[2018-06-28 07:38] LABS: Basophils % 0.3 %; Eosinophils # 0.2 K/mcL (0.0-0.6); Eosinophils % 1.5 %; Hematocrit 32.7 % (35.3-44.9); Hemoglobin 10.5 g/dL (11.5-15.4); Immature Granulocytes % 1.2 % (0-4); Lymphocytes % 16.8 %; Mean Corpuscular HGB Conc 32.1 g/dL (31.6-35.5); Mean Corpuscular Hemoglobin 30.6 pg (28.0-33.3); Mean Corpuscular Volume 95.3 fL (83.0-100.0); Mean Platelet Volume 10.1 fL (9.4-12.4); Monocytes # 0.9 K/mcL (0.0-1.3); Monocytes % 7.5 %; Neutrophils # 8.8 K/mcL (1.6-8.9); Platelet Count 183 K/mcL (140-400); Red Blood Count 3.43 M/mcL (3.82-4.97); Red Cell Distribution Width 13.8 % (11.5-14.5); Segmented Neutrophils % 72.7 %
[2018-06-28 07:56] LABS: Calcium 9.1 mg/dL (8.6-10.3); Potassium 4.6 mEq/L (3.5-5.1)
[2018-06-28] MEDS: Cholecalciferol (D-3) 1,000 UNIT TABLET PO SCH (08:26)
[2018-06-28] MEDS: Acetaminophen 325 MG TABLET PO PRN ×2 (08:26→17:02)
--- NOTE | 2018-06-28 09:17 | Urology Progress Note ---
Date of Encounter: 06/28/18 Time of Encounter: 09:16 - Assessment and Plan (1) Angiomyolipoma of right kidney Current Visit: Yes Status: Acute Assessment and plan: Patient's hemoglobin did drift down from yesterday to today. We will plan on obtaining stat CT abdomen and pelvis for evaluation of possible worsening of hematoma. (2) Renal hematoma, right Current Visit: Yes Status: Acute Qualifiers: Encounter type: initial encounter Qualified Code(s): S37.011A - Minor contusion of right kidney, initial encounter (3) Chronic kidney disease Current Visit: Yes Status: Acute Assessment and plan: Serum creatinine very good at this time. Qualifiers: Chronic kidney disease stage: stage 3 (moderate) Qualified Code(s): N18.3 - Chronic kidney disease, stage 3 (moderate) (4) Nausea and vomiting Current Visit: Yes Status: Acute Qualifiers: Vomiting type: unspecified Qualified Code(s): R11.2 - Nausea with vomiting, unspecified Progress Note Narrative: Patient seen this morning. Patient feeling okay. Up and eating breakfast. Patient's hemoglobin did drift down to 10.5. Serum creatinine stable. Objective Initial Vital Signs Temp Pulse Resp BP Pulse Ox 97.9 F 66 18 152/88 98 06/26/18 13:08 06/26/18 13:08 06/26/18 13:08 06/26/18 13:08 06/26/18 13:08 - General physical appearance Present: well developed, well nourished - Abdomen Present: soft. Absent: tender - Labs 06/28/18 07:15 06/28/18 07:15 Diabetes panel 06/28/18 Range/Units 07:15 Sodium 138 (136-145) mEq/L Potassium 4.6 (3.5-5.1) mEq/L Chloride 106 (98-107) mEq/L Carbon Dioxide 25 (23-29) mEq/L BUN 30 H (8-23) mg/dL Creatinine 1.43 H (0.60-1.20) mg/dL Glucose 105 (70-105) mg/dL Calcium 9.1 (8.6-10.3) mg/dL Calcium panel 06/28/18 Range/Units 07:15 Calcium 9.1 (8.6-10.3) mg/dL Pituitary panel 06/28/18 Range/Units 07:15 Sodium 138 (136-145) mEq/L Potassium 4.6 (3.5-5.1) mEq/L Chloride 106 (98-107) mEq/L Carbon Dioxide 25 (23-29) mEq/L BUN 30 H (8-23) mg/dL Creatinine 1.43 H (0.60-1.20) mg/dL Glucose 105 (70-105) mg/dL Calcium 9.1 (8.6-10.3) mg/dL Adrenal panel 06/28/18 Range/Units 07:15 Sodium 138 (136-145) mEq/L Potassium 4.6 (3.5-5.1) mEq/L Chloride 106 (98-107) mEq/L Carbon Dioxide 25 (23-29) mEq/L BUN 30 H (8-23) mg/dL Creatinine 1.43 H (0.60-1.20) mg/dL Glucose 105 (70-105) mg/dL Calcium 9.1 (8.6-10.3) mg/dL Consult Discharge Plan - Plan Referrals: Anthony Elmore DO [Primary Care Provider] -
--- NOTE | 2018-06-28 12:05 | Internal Med Progress Note ---
Hospitalist Progress Note - Encounter Date of Encounter: 06/28/18 Time of Encounter: 08:30 - Subjective Interval History: Patient was seen and examined. No acute events overnight. Hemoglobin was noted to have dropped somewhat. Being evaluated by urology regarding renal angiomyolipoma. CT was repeated this morning which showed slightly decreased hemorrhage. Patient denies any pain. - Exam Vitals: Temp Pulse Resp BP Pulse Ox 98.4 F 65 16 121/75 94 06/28/18 11:12 06/28/18 11:12 06/28/18 11:12 06/28/18 11:12 06/28/18 11:12 Exam: GEN: NAD CVS: RRR. S1, S2, No m/r/g RESP: CTAB ABD: Soft, NT, ND, +BS EXT: No edema. 2+ DP. No rashes NEURO: Nonfocal - Assessment and Plan (1) Angiomyolipoma of right kidney Current Visit: Yes Status: Acute Assessment and Plan: We will continue to monitor for now. Spoke to Dr. Simmons. I think some of that Her hemoglobin is due to dilutional effects from IV fluids. We will stop IV fluids and check labs in the morning. Possible discharge in the morning. (2) Renal hematoma, right Current Visit: Yes Status: Acute Assessment and Plan: As above (3) Chronic kidney disease Current Visit: Yes Status: Acute Assessment and Plan: Stable (4) Nausea and vomiting Current Visit: Yes Status: Acute Assessment and Plan: Resolved (5) DVT prophylaxis Current Visit: Yes Status: Acute Assessment and Plan: SCDs (6) Hypertension Current Visit: Yes Status: Acute - Time Spent with Patient Total time spent is greater than 50% in coordination of care (as documented) at patient's floor/unit and/or counseling patient: Internal Medicine: Result - Labs CBC & Chem 7: 06/28/18 07:15 06/28/18 07:15 Labs: Short CBC 06/27/18 06/28/18 Range/Units 16:59 07:15 WBC 12.1 H (4.3-11.1) K/mcL Hgb 11.2 L 10.5 L (11.5-15.4) g/dL Hct 35.2 L 32.7 L (35.3-44.9) % Plt Count 183 (140-400) K/mcL Neutrophils # 8.8 (1.6-8.9) K/mcL BMP 06/28/18 07:15 Sodium 138 Potassium 4.6 Chloride 106 Carbon Dioxide 25 BUN 30 H Creatinine 1.43 H Glucose 105 Calcium 9.1 - Impressions Impressions Abdomen/Pelvis CT 06/28/18 08:07 IMPRESSION: 1. Right renal angiomyolipoma with small right retroperitoneal hemorrhage as seen on the previous CT scan. The hemorrhage appears stable to slightly smaller and no new areas of hemorrhage are evident. 2. Mild colonic diverticulosis without evidence of diverticulitis. 3. Status post cholecystectomy and hysterectomy. Other incidental findings include atelectasis at the lung bases, mild cardiomegaly and previous left total hip arthroplasty. D/ / Kip Hatch MD / Kip Hatch MD Interpreting Provider: Kip Hatch MD Consult Discharge Plan - Plan Referrals: Anthony Elmore DO [Primary Care Provider] - (2) Renal hematoma, right Qualifiers: Encounter type: initial encounter Qualified Code(s): S37.011A - Minor contusion of right kidney, initial encounter (3) Chronic kidney disease Qualifiers: Chronic kidney disease stage: stage 3 (moderate) Qualified Code(s): N18.3 - Chronic kidney disease, stage 3 (moderate) (4) Nausea and vomiting Qualifiers: Vomiting type: unspecified Qualified Code(s): R11.2 - Nausea with vomiting, unspecified
--- NOTE | 2018-06-28 14:55 | Event Note ---
Date of Encounter: 06/28/18 Time of Encounter: 14:[address] scan reviewed. Hematoma appears stable with no obvious new bleeding. We will stop IV fluids and if hemoglobin stable tomorrow we will discharge home.
[2018-06-29] MEDS: Acetaminophen 325 MG TABLET PO PRN (03:34)
[2018-06-29 05:52] LABS: Basophils # 0.1 K/mcL (0.0-0.2); Basophils % 0.5 %; Eosinophils # 0.2 K/mcL (0.0-0.6); Eosinophils % 2.2 %; Hematocrit 30.7 % (35.3-44.9); Hemoglobin 9.9 g/dL (11.5-15.4); Immature Granulocytes % 1.6 % (0-4); Lymphocytes # 1.6 K/mcL (0.6-4.6); Lymphocytes % 14.8 %; Mean Corpuscular HGB Conc 32.2 g/dL (31.6-35.5); Mean Corpuscular Hemoglobin 30.9 pg (28.0-33.3); Mean Corpuscular Volume 95.9 fL (83.0-100.0); Mean Platelet Volume 10.3 fL (9.4-12.4); Monocytes # 0.8 K/mcL (0.0-1.3); Monocytes % 7.5 %; Platelet Count 188 K/mcL (140-400); Red Cell Distribution Width 13.7 % (11.5-14.5); Segmented Neutrophils % 73.4 %
[2018-06-29 06:10] LABS: Magnesium 2.2 mg/dL (1.6-2.6)
[2018-06-29 06:59] VITALS: BP 113/76
--- NOTE | 2018-06-29 07:45 | Urology Progress Note ---
Date of Encounter: 06/29/18 Time of Encounter: 07:42 - Assessment and Plan (1) Angiomyolipoma of right kidney Current Visit: Yes Status: Acute (2) Renal hematoma, right Current Visit: Yes Status: Acute Assessment and plan: Patient's hemoglobin has drifted down a little bit. In my opinion while some of this may be related to blood loss the CT scan done yesterday did not show significant increase in hematoma size. I believe that the majority of her hemoglobin drift is related to fluid positive. From urology standpoint patient okay to discharge home. I have ordered a CBC to be done on Tuesday. Patient is aware of this. We will plan on follow-up after I review this CBC on Tuesday. Qualifiers: Encounter type: initial encounter Qualified Code(s): S37.011A - Minor contusion of right kidney, initial encounter (3) Chronic kidney disease Current Visit: Yes Status: Acute Qualifiers: Chronic kidney disease stage: stage 3 (moderate) Qualified Code(s): N18.3 - Chronic kidney disease, stage 3 (moderate) (4) Nausea and vomiting Current Visit: Yes Status: Acute Qualifiers: Vomiting type: unspecified Qualified Code(s): R11.2 - Nausea with vomiting, unspecified Progress Note Narrative: Patient seen this morning. Patient feeling good and ready to go home. Patient's hemoglobin did drift down to 9.9. Objective Initial Vital Signs Temp Pulse Resp BP Pulse Ox 97.9 F 66 18 152/88 98 06/26/18 13:08 06/26/18 13:08 06/26/18 13:08 06/26/18 13:08 06/26/18 13:08 - General physical appearance Present: well developed, well nourished - Abdomen Present: soft. Absent: tender - Musculoskeletal Present: normal posture - Labs 06/29/18 05:23 06/29/18 05:23 Diabetes panel 06/28/18 06/29/18 Range/Units 07:15 05:23 Sodium 138 138 (136-145) mEq/L Potassium 4.6 5.0 (3.5-5.1) mEq/L Chloride 106 106 (98-107) mEq/L Carbon Dioxide 25 24 (23-29) mEq/L BUN 30 H 27 H (8-23) mg/dL Creatinine 1.43 H 1.28 H (0.60-1.20) mg/dL Glucose 105 112 H (70-105) mg/dL Calcium 9.1 9.0 (8.6-10.3) mg/dL Calcium panel 06/28/18 06/29/18 Range/Units 07:15 05:23 Calcium 9.1 9.0 (8.6-10.3) mg/dL Pituitary panel 06/28/18 06/29/18 Range/Units 07:15 05:23 Sodium 138 138 (136-145) mEq/L Potassium 4.6 5.0 (3.5-5.1) mEq/L Chloride 106 106 (98-107) mEq/L Carbon Dioxide 25 24 (23-29) mEq/L BUN 30 H 27 H (8-23) mg/dL Creatinine 1.43 H 1.28 H (0.60-1.20) mg/dL Glucose 105 112 H (70-105) mg/dL Calcium 9.1 9.0 (8.6-10.3) mg/dL Adrenal panel 06/28/18 06/29/18 Range/Units 07:15 05:23 Sodium 138 138 (136-145) mEq/L Potassium 4.6 5.0 (3.5-5.1) mEq/L Chloride 106 106 (98-107) mEq/L Carbon Dioxide 25 24 (23-29) mEq/L BUN 30 H 27 H (8-23) mg/dL Creatinine 1.43 H 1.28 H (0.60-1.20) mg/dL Glucose 105 112 H (70-105) mg/dL Calcium 9.1 9.0 (8.6-10.3) mg/dL Consult Discharge Plan - Plan Referrals: Anthony Elmore DO [Primary Care Provider] -
--- NOTE | 2018-06-29 08:22 | Discharge Summary ---
Date of Encounter: 06/29/18 Time of Encounter: 08:21 - Discharge Diagnosis (1) Angiomyolipoma of right kidney Priority: Primary Status: Acute (2) Renal hematoma, right Priority: Primary Status: Acute Qualifiers: Encounter type: initial encounter Qualified Code(s): S37.011A - Minor contusion of right kidney, initial encounter (3) Chronic kidney disease Priority: Secondary Status: Acute Qualifiers: Chronic kidney disease stage: stage 3 (moderate) Qualified Code(s): N18.3 - Chronic kidney disease, stage 3 (moderate) (4) Nausea and vomiting Priority: Primary Status: Acute Qualifiers: Vomiting type: unspecified Qualified Code(s): R11.2 - Nausea with vomiting, unspecified (5) Hypertension Priority: Secondary Status: Acute Qualifiers: Hypertension type: essential hypertension Qualified Code(s): I10 - Essential (primary) hypertension Hospital course: Ms. 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 Pain was sharp and sudden onset and radiating around the back. She came to the ER and had a CT scan done showing a right renal angiomyolipoma and interval increase size of right renal angiomyolipoma. Relatively small sized right retroperitoneal hematoma. She was seen by urology in the ER and she was admitted for further management. While inpatient, she was put on IV fluids. A slight drop in H/H was noted. Urology were aware. It is believed the drop was dilutional due to IV fluids. She had a repeat CT abd/pelvis which showed improvement of hematoma. She was discharged with plans to repeat CBC in 2 days and follow up with urology. Dr. Simmons was aware and recommended the above plan. Was discharged on 06/29/2018 - Time Spent with Patient Total time spent providing and/or coordinating discharge services: Time spent: Greater than 30 minutes - Discharge Medications Prescriptions: Continue RX: Spironolactone [Aldactone] 50 mg PO DAILY RX: Furosemide [Lasix] 40 mg PO DAILY RX: Cholecalciferol (D-3) [Vitamin D] 2,000 unit PO DAILY RX: Atenolol [Tenormin] 50 mg PO HS No Action RX: Furosemide [Lasix] 40 mg PO HS PRN PRN Reason: Edema Home Medications: RX: Atenolol [Tenormin] 50 mg PO HS 09/30/15 [History] RX: Cholecalciferol (D-3) [Vitamin D] 2,000 unit PO DAILY 09/30/15 [History] RX: Furosemide [Lasix] 40 mg PO DAILY 09/30/15 [History] RX: Spironolactone [Aldactone] 50 mg PO DAILY 09/30/15 [History] RX: Furosemide [Lasix] 40 mg PO HS PRN 06/27/18 [History] Allergies/Adverse Reactions: 3 Allergy/AdvReac Type Severity Reaction Status Date / Time Penicillins AdvReac Numbness Verified 06/27/18 17:14 Date of admission: 06/28/18 11:30 Primary care physician: Anthony Elmore DO Consults: 06/26/18 13:45 Consult to Urology [CONS] Stat Consulting Provider: Urology [facility] Reason for Consult: [place] Call Completed: No - Constitutional Vitals: Temp Pulse Resp BP Pulse Ox 98.0 F 67 14 113/76 94 06/29/18 06:56 06/29/18 06:56 06/29/18 06:56 06/29/18 06:56 06/29/18 06:56 General appearance: Present: A&O X 3 Exam: GEN: NAD CVS: RRR. S1, S2, No m/r/g RESP: CTAB ABD: Soft, NT, ND, +BS EXT: No edema. 2+ DP. No rashes NEURO: Nonfocal - Patient Status Disposition: Home, Self-Care Condition: Good Overall status at discharge: patient is progressing back to baseline - Ambulatory Orders Ambulatory Orders: Complete Blood Count [HEME] Time Frame: 07/01/18, Facility: [facility], Location: Lab - Discharge Instructions Follow Up With: Wilfred Simmons MD [Partnered Physician] - 07/06/18 9:30 am () Anthony Elmore DO [Primary Care Provider] - 07/04/18 1:30 pm - Diet and Activity Activity: increase activity as tolerated Diet: diabetic diet, low salt diet
[2018-06-29] MEDS: Cholecalciferol (D-3) 1,000 UNIT TABLET PO SCH (10:27)
== END 2018-06-29 11:17 | disposition home or self-care (01) | DRG 394 ==
LOC: EMEROOARM 12:58 → 2ANU 12:58
PROVIDERS: ADMIT Hospitalist; ATTEND Hospitalist

== ENCOUNTER 2019-05-21 15:39 | Inpatient (IN) ==
[2019-05-21 16:21] LABS: Basophils # 0.1 K/mcL (0.0-0.2); Basophils % 0.6 %; Eosinophils # 0.2 K/mcL (0.0-0.6); Hematocrit 39.5 % (35.3-44.9); Hemoglobin 13.1 g/dL (11.5-15.4); Lymphocytes # 1.5 K/mcL (0.6-4.6); Mean Corpuscular HGB Conc 33.2 g/dL (31.6-35.5); Mean Corpuscular Hemoglobin 31.3 pg (28.0-33.3); Mean Corpuscular Volume 94.5 fL (83.0-100.0); Mean Platelet Volume 9.6 fL (9.4-12.4); Monocytes # 0.6 K/mcL (0.0-1.3); Monocytes % 7.4 %; Neutrophils # 5.9 K/mcL (1.6-8.9); Platelet Count 142 K/mcL (140-400); Red Blood Count 4.18 M/mcL (3.82-4.97); Red Cell Distribution Width 13.4 % (11.5-14.5); White Blood Count 8.4 K/mcL (4.3-11.1)
[2019-05-21 16:50] LABS: BUN/Creatinine Ratio 17 (6-26); Blood Urea Nitrogen 28 mg/dL (8-23); Calcium 10.2 mg/dL (8.6-10.3); Carbon Dioxide 25 mEq/L (23-29); Chloride 102 mEq/L (98-107); Glucose 153 mg/dL (70-105); Osmolality,Calculated 297 (280-300); Potassium 3.6 mEq/L (3.5-5.1); Sodium 139 mEq/L (136-145); Troponin I < 0.03 ng/mL (< 0.04); eGFR For African Americans 37 (> 60); eGFR For Non-African Americans 31 (> 60)
[2019-05-21] MEDS ORDERED: *HR* Heparin 5,000 UNIT/ML VIAL IVP PRN ×2 (20:56)
[2019-05-21] MEDS ORDERED: *HR* Heparin 5,000 UNIT/ML VIAL IVP ONE (20:56)
[2019-05-21] MEDS ORDERED: Heparin 25,000 UNIT/250 ML D5W 25,000 UNIT/250 ML IV.SOLN IVC SCH (21:00)
[2019-05-21] MEDS ORDERED: Ondansetron 4 MG/2 ML VIAL IVP ONE (21:04)
[2019-05-21] MEDS ORDERED: Naloxone 0.4 MG/ML INJ IVP PRN ×2 (22:13→23:46)
[2019-05-21 22:52] LABS: ABG Base Excess 4 mEq/L (-2 to 3); ABG HCO3 27 mEq/L (21-27); ABG Oxygen Saturation 97 % (95-98); ABG PCO2 34 mmHg (35-45); ABG PH 7.51 pH Units (7.32-7.45); ABG PO2 83 mmHg (85-104); ABG TCO2 28 mEq/L (20-26); Blood Gas Modality 21
[2019-05-22 01:17] LABS: Bilirubin,Urine Negative (Negative); Blood,Urine Large (Negative); Clarity,Urine Cloudy (Clear); Color,Urine Yellow (Yellow); Glucose,Urine (UA) Normal (Normal); Ketones,Urine Negative (Negative); Leukocyte Esterase,Urine Small (Negative); Nitrite,Urine Negative (Negative); PH,Urine 5.5 pH Units (5.0-8.0); Protein,Urine Negative (Neg-Trace); Specific Gravity,Urine 1.022 (1.010-1.025); Urobilinogen,Urine Normal (Normal)
[2019-05-22 01:21] LABS: Bacteria,Urine None Seen per hpf (None-Few); Hyaline Casts,Urine None Seen per lpf (None-Few); Squamous Epithelial Cell,Urine Many per lpf (None-Few)
[2019-05-22 01:35] LABS: RBC,Urine 0-3 per hpf (0-3); Yeast,Urine Few per hpf (None Seen)
[2019-05-22 05:08] LABS: INR 1.1; Prothrombin Time 12.4 Seconds (9.4-12.1)
[2019-05-22 05:12] LABS: Basophils # 0.1 K/mcL (0.0-0.2); Basophils % 0.6 %; Eosinophils # 0.2 K/mcL (0.0-0.6); Eosinophils % 2.3 %; Hematocrit 37.6 % (35.3-44.9); Hemoglobin 12.4 g/dL (11.5-15.4); Immature Granulocytes % 1.6 % (0-4); Lymphocytes # 1.7 K/mcL (0.6-4.6); Lymphocytes % 20.2 %; Mean Corpuscular Hemoglobin 31.6 pg (28.0-33.3); Mean Corpuscular Volume 95.9 fL (83.0-100.0); Mean Platelet Volume 9.8 fL (9.4-12.4); Monocytes # 0.7 K/mcL (0.0-1.3); Monocytes % 8.4 %; Neutrophils # 5.5 K/mcL (1.6-8.9); Platelet Count 145 K/mcL (140-400); Red Blood Count 3.92 M/mcL (3.82-4.97); Red Cell Distribution Width 13.6 % (11.5-14.5); Segmented Neutrophils % 66.9 %; White Blood Count 8.2 K/mcL (4.3-11.1)
[2019-05-22 05:35] LABS: Albumin 3.8 g/dL (3.5-5.7); Albumin/Globulin Ratio 1.4 (1.1-2.2); Bilirubin,Total 0.7 mg/dL (0.3-1.0); Calcium 9.9 mg/dL (8.6-10.3); Chol/HDL Ratio 4.7 (0-4.9); Globulin 2.8 g/dL (2.4-3.5); Magnesium 1.9 mg/dL (1.6-2.6); Phosphorous 4.6 mg/dL (2.7-4.5); Potassium 3.6 mEq/L (3.5-5.1); Thyroid Stimulating Hormone 1.602 mcIU/mL (0.340-5.600); Total Protein 6.6 g/dL (6.4-8.9)
[2019-05-22 08:38] LABS: Estimated Average Glucose 203 mg/dl
[2019-05-22] MEDS: Cholecalciferol (D-3) 1,000 UNIT (25MCG) TABLET PO SCH (09:21)
[2019-05-22] MEDS ORDERED: Regadenoson 0.4 MG/5 ML SYRINGE IVP ONE (10:24)
[2019-05-22] MEDS: *HR* Heparin 5,000 UNIT/ML VIAL SQ SCH (17:49)
[2019-05-22] MEDS: atenoloL 50 MG TABLET PO SCH (21:43)
[2019-05-23] MEDS: *HR* Heparin 5,000 UNIT/ML VIAL SQ SCH ×2 (05:49→17:38)
[2019-05-23 06:00] LABS: Calcium 9.1 mg/dL (8.6-10.3); Potassium 3.8 mEq/L (3.5-5.1)
[2019-05-23] MEDS: Cholecalciferol (D-3) 1,000 UNIT (25MCG) TABLET PO SCH (08:42)
[2019-05-23] MEDS ORDERED: Ipratropium/Albuterol Neb 3 ML IH PRN (13:25)
[2019-05-23] MEDS: atenoloL 50 MG TABLET PO SCH (21:42)
[2019-05-24 02:48] LABS: Hematocrit 36.1 % (35.3-44.9); Hemoglobin 11.6 g/dL (11.5-15.4); Mean Corpuscular HGB Conc 32.1 g/dL (31.6-35.5); Mean Corpuscular Volume 96.5 fL (83.0-100.0); Mean Platelet Volume 10.3 fL (9.4-12.4); Platelet Count 146 K/mcL (140-400); Red Blood Count 3.74 M/mcL (3.82-4.97); Red Cell Distribution Width 13.8 % (11.5-14.5); White Blood Count 7.8 K/mcL (4.3-11.1)
[2019-05-24 03:08] LABS: Calcium 9.1 mg/dL (8.6-10.3); Potassium 4.1 mEq/L (3.5-5.1)
[2019-05-24] MEDS: *HR* Heparin 5,000 UNIT/ML VIAL SQ SCH ×2 (06:13→18:08)
[2019-05-24] MEDS ORDERED: Regadenoson 0.4 MG/5 ML SYRINGE IVP ONE (06:17)
[2019-05-24] MEDS: Cholecalciferol (D-3) 1,000 UNIT (25MCG) TABLET PO SCH (09:45)
[2019-05-24] MEDS ORDERED: Acetaminophen 325 MG TABLET PO ONE (12:06)
[2019-05-24] MEDS: Colchicine 0.6 MG TABLET PO SCH (18:04)
[2019-05-24] MEDS: Furosemide 40 MG TABLET PO SCH (18:04)
[2019-05-24] MEDS: atenoloL 50 MG TABLET PO SCH (20:01)
[2019-05-25 01:59] LABS: Hematocrit 36.7 % (35.3-44.9); Hemoglobin 11.8 g/dL (11.5-15.4); Mean Corpuscular HGB Conc 32.2 g/dL (31.6-35.5); Mean Corpuscular Hemoglobin 31.1 pg (28.0-33.3); Mean Corpuscular Volume 96.8 fL (83.0-100.0); Mean Platelet Volume 10.1 fL (9.4-12.4); Platelet Count 168 K/mcL (140-400); Red Blood Count 3.79 M/mcL (3.82-4.97); Red Cell Distribution Width 13.8 % (11.5-14.5); White Blood Count 8.4 K/mcL (4.3-11.1)
[2019-05-25 02:19] LABS: Calcium 9.1 mg/dL (8.6-10.3); Potassium 4.2 mEq/L (3.5-5.1)
[2019-05-25] MEDS: *HR* Heparin 5,000 UNIT/ML VIAL SQ SCH ×2 (05:22→17:08)
[2019-05-25] MEDS: Colchicine 0.6 MG TABLET PO SCH (08:46)
[2019-05-25] MEDS: Furosemide 40 MG TABLET PO SCH ×2 (08:46→17:08)
[2019-05-25] MEDS: Cholecalciferol (D-3) 1,000 UNIT (25MCG) TABLET PO SCH (08:47)
[2019-05-25] MEDS: atenoloL 50 MG TABLET PO SCH (21:01)
[2019-05-26 02:14] LABS: Hematocrit 37.3 % (35.3-44.9); Hemoglobin 12.1 g/dL (11.5-15.4); Mean Corpuscular HGB Conc 32.4 g/dL (31.6-35.5); Mean Corpuscular Volume 95.6 fL (83.0-100.0); Mean Platelet Volume 10.4 fL (9.4-12.4); Platelet Count 182 K/mcL (140-400); White Blood Count 9.1 K/mcL (4.3-11.1)
[2019-05-26 02:34] LABS: Calcium 9.1 mg/dL (8.6-10.3); Potassium 4.4 mEq/L (3.5-5.1)
[2019-05-26] MEDS: *HR* Heparin 5,000 UNIT/ML VIAL SQ SCH ×2 (05:19→16:57)
[2019-05-26] MEDS: Colchicine 0.6 MG TABLET PO SCH (05:20)
[2019-05-26] MEDS: Cholecalciferol (D-3) 1,000 UNIT (25MCG) TABLET PO SCH (07:20)
[2019-05-26] MEDS: Furosemide 40 MG TABLET PO SCH (07:20)
[2019-05-26] MEDS: atenoloL 50 MG TABLET PO SCH (20:31)
[2019-05-27] MEDS ORDERED: *HR* Atropine Sulfate 1 MG/10 ML SYRINGE IV ONE (00:01)
[2019-05-27] MEDS ORDERED: *HR* Midazolam HCl 5 MG/5 ML VIAL IVP ONE (00:01)
[2019-05-27] MEDS ORDERED: *HR* EPINEPHrine 1 MG/10 ML SYRINGE IVP ONE (00:01)
[2019-05-27] MEDS ORDERED: *HR* Etomidate 20 MG/10 ML AMPUL IVP ONE (00:01)
[2019-05-27] MEDS ORDERED: *HR* Norepinephrine 4 MG/4 ML VIAL IVC ONE (00:01)
[2019-05-27] MEDS ORDERED: *HR* Magnesium Sulfate 2 GM/50 ML PIGGYBACK IVPB ONE (00:01)
[2019-05-27] MEDS ORDERED: Aminoglycoside Consult 1 EACH MC ONE (00:01)
[2019-05-27] MEDS ORDERED: *HR* LORazepam 2 MG/ML VIAL IVP ONE (00:01)
[2019-05-27] MEDS: *HR* Heparin 5,000 UNIT/ML VIAL SQ SCH (04:53)
[2019-05-27 07:06] LABS: Basophils # 0.1 K/mcL (0.0-0.2); Basophils % 0.6 %; Eosinophils % 0.1 %; Hematocrit 37.6 % (35.3-44.9); Hemoglobin 12.3 g/dL (11.5-15.4); Immature Granulocytes % 2.8 % (0-4); Lymphocytes # 1.9 K/mcL (0.6-4.6); Lymphocytes % 15.2 %; Mean Corpuscular HGB Conc 32.7 g/dL (31.6-35.5); Mean Corpuscular Hemoglobin 31.5 pg (28.0-33.3); Mean Corpuscular Volume 96.2 fL (83.0-100.0); Mean Platelet Volume 10.5 fL (9.4-12.4); Monocytes # 0.8 K/mcL (0.0-1.3); Monocytes % 6.2 %; Neutrophils # 9.3 K/mcL (1.6-8.9); Nucleated Red Blood Cells 0.2 /100 WBC (0); Platelet Count 171 K/mcL (140-400); Red Blood Count 3.91 M/mcL (3.82-4.97); Segmented Neutrophils % 75.1 %; White Blood Count 12.4 K/mcL (4.3-11.1)
[2019-05-27 07:21] LABS: Calcium 8.9 mg/dL (8.6-10.3); Potassium 4.8 mEq/L (3.5-5.1)
[2019-05-27] MEDS ORDERED: 0.9 % Sodium Chloride 500 ML IVC SCH (08:00)
[2019-05-27] MEDS: Cholecalciferol (D-3) 1,000 UNIT (25MCG) TABLET PO SCH (08:11)
[2019-05-27] MEDS ORDERED: 0.9 % Sodium Chloride 1,000 ML IVC SCH (11:27)
[2019-05-27] MEDS ORDERED: Ondansetron 4 MG/2 ML VIAL IVP PRN (16:07)
[2019-05-27 16:42] LABS: Basophils # 0.1 K/mcL (0.0-0.2); Basophils % 0.8 %; Eosinophils % 0.2 %; Hematocrit 40.4 % (35.3-44.9); Immature Granulocytes % 3.8 % (0-4); Lymphocytes # 4.4 K/mcL (0.6-4.6); Lymphocytes % 26.6 %; Mean Corpuscular HGB Conc 32.2 g/dL (31.6-35.5); Mean Corpuscular Hemoglobin 31.1 pg (28.0-33.3); Mean Corpuscular Volume 96.7 fL (83.0-100.0); Mean Platelet Volume 10.6 fL (9.4-12.4); Monocytes # 1.3 K/mcL (0.0-1.3); Monocytes % 7.7 %; Neutrophils # 10.1 K/mcL (1.6-8.9); Platelet Count 156 K/mcL (140-400); Red Blood Count 4.18 M/mcL (3.82-4.97); Red Cell Distribution Width 14.1 % (11.5-14.5); Segmented Neutrophils % 60.9 %; White Blood Count 16.6 K/mcL (4.3-11.1)
[2019-05-27] MEDS ORDERED: *HR* Heparin 5,000 UNIT/ML VIAL IVP ONE (17:27)
[2019-05-27] MEDS ORDERED: *HR* Heparin 5,000 UNIT/ML VIAL IVP PRN ×2 (17:27)
[2019-05-27] MEDS ORDERED: Heparin 25,000 UNIT/250 ML D5W 25,000 UNIT/250 ML IV.SOLN IVC SCH (17:30)
[2019-05-27 17:44] LABS: ABG Base Excess -11 mEq/L (-2 to 3); ABG HCO3 13 mEq/L (21-27); ABG Oxygen Saturation 97 % (95-98); ABG PCO2 22 mmHg (35-45); ABG PH 7.38 pH Units (7.32-7.45); ABG PO2 86 mmHg (85-104); ABG TCO2 13 mEq/L (20-26)
[2019-05-27] MEDS ORDERED: 0.9 % Sodium Chloride 1,000 ML IVC ONE (18:38)
[2019-05-27] MEDS ORDERED: levoFLOXacin 750 MG/150 ML 750 MG/150 ML BAG IVPB SCH (19:00)
[2019-05-27] MEDS ORDERED: Vancomycin 1,750 MG in 0.9 % Sodium Chloride 250 ML IVPB SCH (19:00)
[2019-05-27 19:12] LABS: Calcium 8.5 mg/dL (8.6-10.3); Magnesium 2.5 mg/dL (1.6-2.6); Potassium 5.2 mEq/L (3.5-5.1); Troponin I 0.09 ng/mL (< 0.04)
[2019-05-27] MEDS: atenoloL 50 MG TABLET PO SCH (20:15)
[2019-05-27 20:31] LABS: Adenovirus Not Detected (Not Detect); Bordetella Pertussis Not Detected (Not Detect); Chlamydophila pneumoniae Not Detected (Not Detect); Coronavirus 229E Not Detected (Not Detect); Coronavirus HKU1 Not Detected (Not Detect); Coronavirus NL63 Not Detected (Not Detect); Coronavirus OC43 Not Detected (Not Detect); Human Metapneumovirus Not Detected (Not Detect); Human Rhinovirus/Enterovirus Not Detected (Not Detect); Influenza A Subtype 2009 H1 Not Detected (Not Detect); Influenza B Not Detected (Not Detect); Mycoplasma pneumoniae Not Detected (Not Detect); Parainfluenza Virus 1 Not Detected (Not Detect); Parainfluenza Virus 2 Not Detected (Not Detect); Parainfluenza Virus 3 Not Detected (Not Detect); Parainfluenza Virus 4 Not Detected (Not Detect); Respiratory Syncytial Virus Not Detected (Not Detect)
[2019-05-27 22:40] LABS: ABG Base Excess -16 mEq/L (-2 to 3); ABG HCO3 10 mEq/L (21-27); ABG Oxygen Saturation 97 % (95-98); ABG PCO2 24 mmHg (35-45); ABG PH 7.21 pH Units (7.32-7.45); ABG PO2 106 mmHg (85-104); ABG TCO2 10 mEq/L (20-26)
[2019-05-27 23:08] VITALS: BP 91/68
[2019-05-28] MEDS ORDERED: *HR* EPINEPHrine 1 MG/10 ML SYRINGE IVP ONE (00:01)
== END 2019-05-28 00:02 | disposition expired | DRG 208 ==
LOC: 3BNU 15:39 → EMEROOARM 15:39 → 3BNU 22:15 → ICNU 05-27 18:11
PROVIDERS: ADMIT Family Medicine; ATTEND Family Medicine